=== PATIENT | male | born 1945 | race Caucasian/White ===

== ENCOUNTER 2016-08-27 15:27 | Outpatient (CLI) | payer MEDICARE | END 2016-08-27 15:28 | disposition home or self-care (01) | DX: T82.190A Other mechanical complication of cardiac electrode, initial encounter (principal); R91.8 Other nonspecific abnormal finding of lung field ==

== ENCOUNTER 2016-10-29 07:01 | Outpatient (CLI) | payer MEDICARE | END 2016-10-29 07:02 | disposition home or self-care (01) | DX: I71.4 Abdominal aortic aneurysm, without rupture (principal) ==

== ENCOUNTER 2016-11-22 08:39 | Outpatient (CLI) | payer MEDICARE | END 2016-11-22 08:40 | disposition home or self-care (01) | DX: M85.80 Other specified disorders of bone density and structure, unspecified site (principal); M89.9 Disorder of bone, unspecified; C90.00 Multiple myeloma not having achieved remission ==

== ENCOUNTER 2017-02-07 14:34 | Outpatient (CLI) | payer MEDICARE ==
--- NOTE | 2017-02-07 15:50 | XRAY Report ---
THREE VIEW BILATERAL KNEES: 02/07/2017 CLINICAL INDICATION: Pain. COMPARISON: 08/02/2009. FINDINGS: AP, lateral, and sunrise views of both knees were obtained. Mild osteoarthritic changes ar e again noted bilaterally. There is no evidence of acute fracture or dislocation. No effusion is pres ent on either side. Vascular calcifications are again seen. IMPRESSION: MILD OSTEOARTHRITIS. NO EVIDENCE OF FRACTURE. JOB #: [id number] EXT JOB #:[id number]
--- NOTE | 2017-02-07 16:03 | XRAY Report ---
LEFT HIP AND PELVIS: 02/07/2017 CLINICAL INDICATION: Pain. FINDINGS: Frontal view of the hips and pelvis and frogleg lateral view of the left hip are compared to previous pelvis film of 04/11/2014. Moderate osteoarthritis is again present. There is no evidence of fracture or dislocation. Vascular calcifications are present. IMPRESSION: MODERATE OSTEOARTHRITIS. JOB #: [id number] EXT JOB #:[id number]
== END 2017-02-07 14:35 | disposition home or self-care (01) ==
LOC: DI 14:34
PROVIDERS: ATTEND Internal Medicine
DX: M16.12 Unilateral primary osteoarthritis, left hip (principal); M17.0 Bilateral primary osteoarthritis of knee

== ENCOUNTER 2017-02-21 15:13 | Outpatient (CLI) | payer MEDICARE ==
--- NOTE | 2017-02-23 08:19 | Ultrasound Report ---
EXAM: RENAL ULTRASOUND EXAM DATE: 02/21/2017 03:21 PM. CLINICAL HISTORY: Chronic kidney disease, stage II. COMPARISON: 02/03/2016 and 11/01/2009. TECHNIQUE: Real-time scanning was performed with static images obtained. FINDINGS: Right Kidney: 12.3 x 6.3 x 6.1 cm. Mild pelviectasis. No mass, stones or hydronephrosis. No connie hyd ronephrosis. Renal cortex is mildly echogenic. Left Kidney: 11.0 x 5.2 x 4.6 cm. Renal cortex is mildly echogenic. No renal mass, stones or hydronep hrosis. Bladder: Bilateral jets seen. The prevoid bladder volume was 346.7 cc. The postvoid bladder volume wa s 215.7 cc. IMPRESSION: 1. Bilateral renal cortical increased echogenicity in keeping with chronic renal insufficiency. Mild right pelviectasis. 2. No renal mass, stones or hydronephrosis. 3. Normal bladder. Significant postvoid residual of 215.7 cc. [facility] Referring Provider Line: [phone] SITE ID: [id number]
== END 2017-02-21 15:14 | disposition home or self-care (01) ==
LOC: DI 15:13
PROVIDERS: ATTEND Internal Medicine Nephrology
DX: N18.2 Chronic kidney disease, stage 2 (mild) (principal)
CPT/HCPCS: 76770

== ENCOUNTER 2017-03-26 08:44 | Outpatient (CLI) | payer MEDICARE ==
--- NOTE | 2017-03-26 13:22 | Ultrasound Report ---
LIMITED RETROPERITONEAL ULTRASOUND: 03/26/2017 CLINICAL INDICATION: Followup aneurysm. COMPARISON: 10/29/2016. TECHNIQUE: Real-time sonographic vascular imaging was performed by the patient centered care specialist through the aorta. Multiple loan servicing representative static images were saved for review. FINDINGS: The abdominal aorta measures 2.8 cm proximally, and 2.4 cm in the mid portion. Mild distal aneurysmal dilatation is again seen, measuring 3.1 x 3.0 cm, stable. The iliacs are normal in caliber. No free fluid is present. IMPRESSION: STABLE SMALL DISTAL ABDOMINAL AORTIC ANEURYSM. JOB #: [id number] EXT JOB #: [id number] [facility]y
== END 2017-03-26 08:45 | disposition home or self-care (01) ==
LOC: DI 08:44
PROVIDERS: ATTEND Internal Medicine
DX: I71.4 Abdominal aortic aneurysm, without rupture (principal)
CPT/HCPCS: 76775

== ENCOUNTER 2017-06-11 09:06 | Outpatient (CLI) | payer MEDICARE ==
--- NOTE | 2017-06-11 11:19 | XRAY Report ---
TWO-VIEW CHEST: 06/11/2017 CLINICAL INDICATION: Atrial fibrillation. COMPARISON: 08/27/2016 FINDINGS: Frontal and lateral views of the chest demonstrate an enlarged cardiac silhouette. Left s ubclavian pacemaker is stable. The lungs are hyperinflated, compatible with COPD. No focal consolid ation, effusion, or pneumothorax is present. Old, healed rib fractures are noted. IMPRESSION: COPD, BUT NO EVIDENCE OF ACUTE CARDIOPULMONARY DISEASE. CARDIOMEGALY AND PACEMAKER, STA BLE. JOB #: [id number] EXT JOB #:[id number]
== END 2017-06-11 09:07 | disposition home or self-care (01) ==
LOC: DI 09:06
PROVIDERS: ATTEND Internal Medicine
DX: I48.2 Chronic atrial fibrillation (principal); I51.7 Cardiomegaly; Z95.0 Presence of cardiac pacemaker
CPT/HCPCS: 71020

== ENCOUNTER 2017-06-18 09:10 | Outpatient (CLI) | payer MEDICARE | END 2017-06-18 09:11 | disposition home or self-care (01) | LOC: RT 09:10 | PROVIDERS: ATTEND Internal Medicine | DX: R06.00 Dyspnea, unspecified (principal); J44.9 Chronic obstructive pulmonary disease, unspecified | CPT/HCPCS: 94010 ==

== ENCOUNTER 2017-10-11 08:00 | Outpatient (CLI) | payer MEDICARE ==
--- NOTE | 2017-10-13 08:51 | Ultrasound Report ---
EXAM: AORTIC DOPPLER ULTRASOUND EXAM DATE: 10/11/2017 08:35 AM. CLINICAL HISTORY: Hypertension. Aneurysm. COMPARISON: 03/26/2017. TECHNIQUE: Real-time sonographic imaging of retroperitoneal vascular structures, including color-flow , Doppler flow and spectral analysis was performed by the patient experience coordinator. Multiple software sales representative static images were saved for review. FINDINGS: Aorta: Somewhat limited visualization secondary to overlying bowel gas, especially proximal to mid le vels. Probable mild diffuse atherosclerotic plaque. No significant change in the fusiform distal aortic aneurysm with maximum diameter of 3 cm. Aorta: Proximal: Sagittal AP: 2.8 cm. Mid: Transverse: 2.4 X 2.5 cm. Distal: Transverse: 3.0 X 2.9 cm. Plaque visualized: Yes. Iliacs: Right Iliac: Transverse: 1.4 X 1.5 cm. Left Iliac: Transverse: 1.3 X 1.4 cm. Iliac Vessels: The visualized proximal common iliac arteries are normal in caliber. Other: None. IMPRESSION: No significant change in the 3 cm distal aortic aneurysm. [facility] Referring Provider Line: [phone] SITE ID: [id number]
== END 2017-10-11 08:01 | disposition home or self-care (01) ==
LOC: DI 08:00
PROVIDERS: ATTEND Internal Medicine
DX: I71.4 Abdominal aortic aneurysm, without rupture (principal)
CPT/HCPCS: 76775

== ENCOUNTER 2018-01-09 13:45 | Outpatient (CLI) | payer MEDICARE ==
--- NOTE | 2018-01-09 15:36 | XRAY Report ---
CHEST TWO VIEWS: 01/09/2018 HISTORY: Cough. COMPARISON: 06/11/2017. FINDINGS: Cardiac enlargement. Dual-lead left subclavian transvenous pacemaker unchanged. Multiple old bilateral rib fractures. The lungs are clear. No pleural effusion or pneumothorax. No significant new finding compared with 06/11/2017. IMPRESSION: MILD CARDIOMEGALY WITH CLEAR LUNGS. NO ACUTE FINDINGS COMPARED WITH 06/11/2017. TD: 01/09/2018 14:55 [facility]
== END 2018-01-09 13:46 | disposition home or self-care (01) ==
LOC: DI.N 13:45
PROVIDERS: ATTEND Internal Medicine
DX: R05 Cough (principal); I51.7 Cardiomegaly
CPT/HCPCS: 71046

== ENCOUNTER 2018-02-06 14:51 | Outpatient (CLI) | payer MEDICARE ==
--- NOTE | 2018-02-06 15:52 | Ultrasound Report ---
Procedure Date: 02/06/2018 Accession Number: [id number] / [id number] Procedure: US - Duplex Ext Veins Right CPT Code: FULL RESULT: EXAM: Duplex Ext Veins Right DATE: 02/06/2018 3:50 PM CLINICAL HISTORY: EDEMA COMPARISON: 08/09/2009 TECHNIQUE: Real-time sonographic vascular imaging was performed by the clerical receptionist through the lower extremity utilizing both color-flow and Doppler spectral analysis. Multiple electroplating sales representative static images were saved for review. FINDINGS: Common Femoral Vein (CFV): Normal. Superficial Femoral Vein (SFV) Prox: Normal. Superficial Femoral Vein (SFV) Mid: Normal. Superficial Femoral Vein (SFV) Dist: Normal. Popliteal Vein: Normal. Posterior Tibial Veins: Normal. Peroneal Veins: Normal. Other: None. IMPRESSION: Normal. No evidence for deep venous thrombosis. [facility]
== END 2018-02-06 14:52 | disposition home or self-care (01) ==
LOC: DI 14:51
PROVIDERS: ATTEND Internal Medicine
DX: R60.9 Edema, unspecified (principal)

== ENCOUNTER 2018-09-19 10:03 | Outpatient (CLI) | payer MEDICARE ==
--- NOTE | 2018-09-21 13:34 | Ultrasound Report ---
Reason: ABDOMINAL AORTIC ANEURYSM, WITHOUT RUPTURE Procedure Date: 09/19/2018 Accession Number: [id number] / [id number] Procedure: US - Retroperitoneal Limited CPT Code: FULL RESULT: EXAM: AORTIC DOPPLER ULTRASOUND EXAM DATE: 09/19/2018 10:43 AM. CLINICAL HISTORY: Abdominal aortic aneurysm without rupture. COMPARISON: RETROPERITONEAL LIMITED 10/11/2017 8:19 AM. TECHNIQUE: Real-time sonographic imaging of retroperitoneal vascular structures, including color-flow, Doppler flow and spectral analysis was performed by the mini baccarat dealer. Multiple premium representative static images were saved for review. FINDINGS: Aorta: The abdominal aorta was adequately visualized. The previously seen infrarenal aortic aneurysm measuring up to 3 cm is stable. Aorta: Proximal: Sagittal AP: 2.6 cm. Mid: Transverse: 2.3 x 2.3 cm. Distal: Transverse: 3.0 x 3.0 cm. Plaque visualized: Yes. Iliacs: Right Iliac: Transverse: 1.5 x 1.4 cm. Left Iliac: Transverse: 1.8 x 1.7 cm. Iliac Vessels: The visualized proximal common iliac arteries are within acceptable limits with differences in measurement felt to be due to angle/technique. Other: None. IMPRESSION: Stable exam with 3 cm infrarenal abdominal aortic ectasia. [facility]
== END 2018-09-19 10:04 | disposition home or self-care (01) ==
LOC: DI 10:03
PROVIDERS: ATTEND Internal Medicine
DX: I71.4 Abdominal aortic aneurysm, without rupture (principal)
CPT/HCPCS: 76775

== ENCOUNTER 2019-03-10 13:55 | Outpatient (CLI) | payer MEDICARE | END 2019-03-10 13:56 | disposition critical access hospital (66) | LOC: EMS 13:55 | PROVIDERS: ATTEND Surgery | DX: S09.90XA Unspecified injury of head, initial encounter (principal); S69.91XA Unspecified injury of right wrist, hand and finger(s), initial encounter; W10.1XXA Fall (on)(from) sidewalk curb, initial encounter; Y92.480 Sidewalk as the place of occurrence of the external cause; Z79.01 Long term (current) use of anticoagulants | CPT/HCPCS: A0425; A0429 ==

== ENCOUNTER 2019-03-10 14:13 | Emergency (ER) | payer MEDICARE ==
--- NOTE | 2019-03-10 14:26 | ED Physician Documentation ---
History of Present Illness - Stated complaint Stated Complaint: GLF - Chief complaint Chief Complaint: Trauma Hd/Nk - History obtained from History obtained from: Patient - History of Present Illness Timing: Prior to arrival - Additonal information Additional information: Patient is a 74-year-old male who accidentally tripped on a curb while going into the post office just prior to arrival. Patient struck his face and has superficial abrasions to his forehead and nose, but denies loss of consciousness. Patient also denies epistaxis, intraoral trauma, vision changes. Patient also denies neck pain, back pain, but does have generalized rib pain without other chest pain. No difficulty breathing. No vomiting, abdominal pain, extremity pain or other complaints except for superficial abrasions to both knees and laceration to right hand. Patient is right-handed. Patient is on Eliquis. Otherwise, patient has been at his normal state of health without complaint. No other improving or worsening factors noted. Review of Systems Eyes: denies: Loss of vision Nose: denies: Epistaxis Throat: denies: Dental pain / toothache Cardiac: denies: Chest pain / pressure Respiratory: denies: Dyspnea GI: denies: Abdominal Pain, Nausea, Vomiting, Diarrhea : denies: Dysuria Skin: reports: Abrasion (s), Laceration (s) Musculoskeletal: denies: Neck pain, Back pain, Extremity pain Neurologic: reports: Head injury. denies: Headache, LOC PD PAST MEDICAL HISTORY - Past Medical History Cardiovascular: Atrial fibrillation Respiratory: COPD Endocrine/Autoimmune: None GI: None : Benign prostate hypertrophy Musculoskeletal: None Derm: None - Past Surgical History Cardiovascular: Pacemaker - Present Medications Home Medications: Ambulatory Orders Medication Instructions Recorded Confirmed Lisinopril 10 mg PO BID 12/02/12 02/15/19 Sertraline [Zoloft] 150 mg ORAL DAILY 12/02/12 02/15/19 Simvastatin 20 mg ORAL DAILY 12/02/12 02/15/19 Vitamin B-12 500 mcg ORAL DAILY 12/02/12 02/15/19 Vitamin D 400 units ORAL BID 12/02/12 02/15/19 Multivitamin [Multivitamins] 1 each PO DAILY 06/07/13 02/15/19 Sotalol [Betapace] 80 mg ORAL BID 05/16/14 02/15/19 Albuterol Sulfate [Proair Hfa] 1 spray INH DAILY PRN 04/15/16 02/15/19 Ipratropium [employer] [Atrovent] 1 spray RANJAN DAILY 04/15/16 02/15/19 Montelukast [Singulair] 10 mg PO QPM 06/03/16 02/15/19 Apixaban [Eliquis] 5 mg PO DAILY 11/23/18 02/15/19 Carbidopa/Levodopa 25/100 [Sinemet 1 tab PO BID 11/23/18 02/15/19 25 mg/100 mg] Chlorthalidone 25 tab PO DAILY 11/23/18 02/15/19 Ipratropium [employer] [Atrovent Hfa] 1 puffs PO BID 11/23/18 02/15/19 Cephalexin [Keflex] 500 mg PO Q6H #28 capsule 03/10/19 Hydrocodone/Acetaminophen [Clute 1 each PO Q6HR PRN #15 tablet 03/10/19 5-325 Tablet] - Allergies Allergies/Adverse Reactions: Allergies Allergy/AdvReac Type Severity Reaction Status Date / Time azithromycin Allergy Mild Hives Verified 03/10/19 14:19 PD ED PE NORMAL - Vitals Vital signs reviewed: Yes - General General: Alert and oriented X 3, No acute distress, Well developed/nourished - HEENT HEENT: PERRL (No nystagmus. Gross visual acuity intact.), EOMI, Moist mucous membranes, Pharynx benign, Dentition benign. No: Atraumatic (Superficial abrasion to nasal bridge and midline forehead otherwise uncomplicated) - Neck Neck: No bony TTP - Cardiac Cardiac: RRR, No murmur - Respiratory Respiratory: No respiratory distress, Clear bilaterally - Abdomen Abdomen: Soft, Non tender, Non distended - Derm Derm: Normal color, Warm and dry, Other (Superficial abrasions to both knees otherwise uncomplicated. Large laceration to palm of right hand directly below pinky finger with exposure of subcutaneous tissue.) - Extremities Extremities: No deformity, No tenderness to palpate - Neuro Neuro: Alert and oriented X 3, No motor deficit, No sensory deficit - Psych Psych: Normal mood, Normal affect Results - Vitals Vitals: Vital Signs - 24 hr 03/10/19 03/10/19 14:17 15:41 Temperature 36.8 C Heart Rate 61 64 Respiratory 20 19 Rate Blood Pressure 138/80 H 136/82 H O2 Saturation 97 96 Oxygen O2 Source Room air Procedures - Laceration (location) Hand Length in cm: 2 Wound type: Curved, Irregular Neurovascular status: Sensory intact, Motor intact, Vascular intact Anesthesia: LET Wound Preparation: Irrigated copiously NS Skin layer closure: Nylon, Size #-0 - enter number (#4-0 four) Other: Patient tolerated well, No complications, Neurovascular intact, Dressing applied, Tetanus booster given Complexity: Simple - Splint (location) Upper extremity right Splint applied by: Tech Type of splint: Fiberglass, Ulnar gutter Other: Patient tolerated well, No complications, Neurovascular intact, Sling provided PD MEDICAL DECISION MAKING - ED course Complexity details: reviewed results, re-evaluated patient, considered differential, d/w patient, d/w family, d/w engineering consultant ED course: Patient presenting after mechanical fall just prior to arrival. Patient has multiple superficial abrasions to face, as well as both knees and a laceration to right hand. CT imaging of head and neck obtained which not find evidence of acute injury. Plain films of right hand indicated displaced fracture through the base of the proximal phalanx of the fifth digit. Laceration is overlying this area and giving consideration of possible open fracture, patient received both tetanus and Ancef. Also spoke with orthopedic surgery who recommends outpatient follow-up. Patient's wound appropriately anesthetized, cleaned, repaired in the ED. Ulnar gutter splint placed as well. Discussed possible close injury precautions for such, superficial abrasion wound care, splint and right hand fracture and wound care, return precautions, and orthopedic surgery, as well as primary care follow-up. Patient and family voiced understanding and are comfortable with discharge plan. Departure - Departure Disposition: 01 Home, Self Care Clinical Impression: Laceration Closed head injury Qualifiers: Encounter type: initial encounter Qualified Code(s): S09.90XA - Unspecified injury of head, initial encounter Finger fracture, right Qualifiers: Encounter type: initial encounter Finger: little finger Fracture type: open Phalanx: proximal Fracture alignment: displaced Qualified Code(s): S62.616B - Displaced fracture of proximal phalanx of right little finger, initial encounter for open fracture Condition: Good Instructions: ED Head Injury Closed, ED Laceration All, ED Fx Finger Open Follow-Up: Otilio Agosto MD [Provider Admit Priv/Credential] - Within 3 Days Prescriptions: Hydrocodone/Acetaminophen [Clute 5-325 Tablet] 1 each PO Q6HR PRN #15 tablet PRN Reason: Pain Cephalexin [Keflex] 500 mg PO Q6H #28 capsule Comments: Please continue home medications as previously instructed. Please take antibiotics to avoid infection in the right hand. May use Clute as prescribed for pain control but do not combine with alcohol, driving, or Tylenol. If using Clute regularly, recommend use of stool softener or laxative to avoid constipation. If not taking Clute regularly, may use ibuprofen/Tylenol. Please keep splint in place, clean, dry. May also elevate and ice and to reduce swel ling and discomfort. Please keep all other superficial abrasions clean and dry using running water and soap only. Please be aware of possible closed head injury/concussion and avoid activities that could result in fall or striking of head. Please follow-up with primary care physician in next 2 to 3 days for reevaluation and approval to return to full activity. Please contact orthopedic surgery tomorrow to schedule outpatient follow-up in the next several days regarding your right hand injury and fracture. Return to ED sooner if experience worsening symptoms or have other concerns.
[2019-03-10] MEDS ORDERED: TETANUS/DIPHTHERIA/PERTUSSIS 0.5 ML SYRINGE IM ONE (14:32)
[2019-03-10] MEDS ORDERED: LIDOCAINE-EPINEPH-TETRACAINE 3 ML SYRINGE TOP STA (14:43)
--- NOTE | 2019-03-10 15:11 | CT Report ---
Reason: fall off curb onto face, on Eliquis Procedure Date: 03/10/2019 Accession Number: [id number] / [id number] Procedure: CT - HEAD WO CPT Code: FULL RESULT: EXAM: CT HEAD WITHOUT IV CONTRAST EXAM DATE: 03/10/2019 02:53 PM. CLINICAL HISTORY: 74-year-old on Eliquis with fall off of curb onto face. Evaluate for intracranial pathology. COMPARISON: CT cervical spine 03/10/2019. TECHNIQUE: Multiaxial CT images were obtained from the foramen magnum to the vertex. Reformats: Sagittal and coronal. IV contrast: None. In accordance with CT protocol optimization, one or more of the following dose reduction techniques were utilized for this exam: automated exposure control, adjustment of mA and/or KV based on patient size, or use of iterative reconstructive technique. FINDINGS: Parenchyma: No acute parenchymal hemorrhage, mass, or midline shift. There are mild bilateral areas of white matter hypoattenuation seen that are age-indeterminant but appear chronic. There is no convincing CT evidence of acute infarct. There is mild to moderate cortical volume loss. Extraaxial Spaces: Sulci and cisterns are prominent but appropriate for the extent of volume loss. No subdural or epidural collections identified. Ventricles: Normal in size and position. Sinuses and Orbits: Changes of bilateral lens replacement. There is moderate mucosal thickening of the visualized left maxillary sinus. Mastoid air cells and middle ear cavities appear clear. Bones: No evidence of fracture or calvarial defect. Other: Vascular calcifications of the cavernous and supraclinoid ICA segments. IMPRESSION: 1. No definite acute intracranial pathology seen; specifically, no acute infarct, acute intracranial hemorrhage, mass, hydrocephalus, or midline shift. 2. No definite calvarial fracture. 3. Mild white matter changes seen that appear chronic suggesting potential sequela of chronic small-vessel ischemic disease. [facility]
--- NOTE | 2019-03-10 15:18 | CT Report ---
Reason: fall off of curb, struck face, on Eliquis Procedure Date: 03/10/2019 Accession Number: [id number] / [id number] Procedure: CT - CERVICAL SPINE WO CPT Code: FULL RESULT: EXAM: CT CERVICAL SPINE WITHOUT CONTRAST DATE: 03/10/2019 02:53 PM. HISTORY: 74-year-old on [email or web address] with fall off of curb resulting in facial strike. Evaluate for cervical pathology. COMPARISONS: None. TECHNIQUE: Thin-section axial images were acquired of the cervical spine without contrast. Post-processing: Coronal and sagittal reformats. Other: None. In accordance with CT protocol optimization, one or more of the following dose reduction techniques were utilized for this exam: automated exposure control, adjustment of mA and/or KV based on patient size, or use of iterative reconstructive technique. FINDINGS: Alignment: Mild leftward curvature of the cervical spine. Straightening of the normal cervical lordosis. Bones: No fracture or bone lesion. Interspace Levels/Facets: C1-C2: Arthritic changes seen between the dens and anterior arch of C1. There is 3-4 mm of clockwise rotary subluxation of C1 on C2. C2-C3: Small broad-based disk osteophyte complex. Bilateral arthritic facet disease. Mild spinal canal stenosis. Mild left neural foraminal narrowing. C3-C4: Small broad-based disk osteophyte complex. Bilateral uncovertebral osteophyte and arthritic facet disease, greater on the left. Mild spinal canal stenosis. Mild right and severe left neural foraminal narrowing. C4-C5: Small broad-based disk osteophyte complex. Left uncovertebral osteophyte and arthritic facet disease as well as right arthritic facet disease. Mild spinal canal stenosis. Severe left neural foraminal narrowing. C5-C6: Mild to moderate endplate degenerative change, Schmorl's node formation, moderate loss of disk height, and vacuum disk phenomenon. Small to moderate broad-based disk osteophyte complex. Bilateral uncovertebral osteophyte and arthritic facet disease. Mild spinal canal stenosis. Mild to moderate right and moderate left neural foraminal narrowing. C6-C7: Anterior spurring. Moderate endplate degenerative change, Schmorl's node formation, severe loss of disk height, and vacuum disk phenomenon. Small to moderate broad-based disk osteophyte complex. Bilateral uncovertebral osteophyte and arthritic facet disease. Mild to moderate spinal canal stenosis. Moderate to severe bilateral neural foraminal narrowing. C7-T1: Anterior spurring. Mild endplate degenerative change with moderate loss of disk height. Bilateral arthritic facet disease. No spinal canal stenosis. Mild bilateral neural foraminal narrowing. Musculature: Mild fatty atrophy of the posterior spinal musculature. Edema within the subcutaneous tissues of the posterior neck. Other: The paravertebral and prevertebral soft tissues are unremarkable. The lung apices are clear. Vascular calcifications of the carotid bifurcations. Hyperdense right thyroid nodule seen measuring up to 13 mm (series 3, image 91). Punctate calcification seen within the tonsillar crypts. IMPRESSION: 1. No acute fracture or traumatic subluxation seen. 2. Multilevel degenerative changes seen, as detailed above. [facility]
--- NOTE | 2019-03-10 15:20 | XRAY Report ---
Reason: fall off curb with generalized rib pain Procedure Date: 03/10/2019 Accession Number: [id number] / [id number] Procedure: XR - Chest 1 View X-Ray CPT Code: 62798 FULL RESULT: EXAM: CHEST RADIOGRAPHY EXAM DATE: 03/10/2019 02:49 PM. CLINICAL HISTORY: Fall COMPARISON: CHEST 2 VIEW 01/09/2018 2:00 PM. TECHNIQUE: 1 view. FINDINGS: Lungs/Pleura: Bibasilar atelectasis and scarring. Tiny calcific density in left upper hemithorax is pleural plaque versus calcified granuloma. No acute displaced rib fractures or pneumothorax. No focal opacities evident. No pleural effusion. No pneumothorax. Mediastinum: Dual-lead ICD device projects over the left chest wall with moderate stable cardiomegaly. Other: Old healed rib fractures at 5, 6 and 7 posterior right ribs. IMPRESSION: Dual-lead ICD device projects over left chest wall with moderate stable cardiomegaly. No acute cardiopulmonary process. No acute displaced rib fractures but no pneumothorax. [facility]
--- NOTE | 2019-03-10 15:23 | XRAY Report ---
Reason: fall off curb, lac to right palm below pinky Procedure Date: 03/10/2019 Accession Number: [id number] / [id number] Procedure: XR - Hand 3 View RT CPT Code: FULL RESULT: EXAM: RIGHT HAND RADIOGRAPHY EXAM DATE: 03/10/2019 02:49 PM. CLINICAL HISTORY: Fall off curb, lac to right palm below pinky. COMPARISON: None. TECHNIQUE: 3 views. FINDINGS: Bones: An acute displaced transverse nonarticular fracture is seen through the base of the proximal phalanx of right fifth digit. Mild soft tissue swelling overlying the fracture site. Joints: No subluxations. IMPRESSION: An acute displaced transverse nonarticular fracture through the base of the proximal phalanx of right fifth digit. No malalignment. [facility]
[2019-03-10] MEDS ORDERED: ceFAZolin 1 GM in SODIUM CHLORIDE 0.9% MINIBAG 100 ML IV STA (15:25)
[2019-03-10 18:05] VITALS: BP 135/87
== END 2019-03-10 18:27 | disposition home or self-care (01) ==
LOC: EDUNIT# → ED 14:13
DX: S09.8XXA Other specified injuries of head, initial encounter (principal); S62.616B Displaced fracture of proximal phalanx of right little finger, initial encounter for open fracture; S00.31XA Abrasion of nose, initial encounter; S00.81XA Abrasion of other part of head, initial encounter; S80.212A Abrasion, left knee, initial encounter; S80.211A Abrasion, right knee, initial encounter; W10.1XXA Fall (on)(from) sidewalk curb, initial encounter; Y92.242 Post office as the place of occurrence of the external cause; Z79.01 Long term (current) use of anticoagulants
CPT/HCPCS: 12001; 70450; 71045; 72125; 90471; 96365

== ENCOUNTER 2019-04-28 10:55 | Outpatient (CLI) | payer MEDICARE ==
[2019-04-28 12:56] LABS: ALBUMIN 3.7 g/dL (3.2-5.5); ALBUMIN/GLOBULIN RATIO 1.1 (1.0-2.2); ALKALINE PHOSPHATASE 34 IU/L (42-121); ALT ALANINE AMINOTRANSFERASE < 10 IU/L (10-60); AST ASPARTATE AMINOTRANSFERASE 19 IU/L (10-42); BILIRUBIN,TOTAL 0.4 mg/dL (0.2-1.0); BUN - BLOOD UREA NITROGEN 19 mg/dL (6-20); CALCIUM 9.1 mg/dL (8.5-10.3); CARBON DIOXIDE - CO2 27 mmol/L (21-32); CHLORIDE 104 mmol/L (101-111); CREATININE 1.1 mg/dL (0.6-1.2); GFR - MDRD 65 (>89); GLUCOSE 111 mg/dL (70-100); SODIUM 137 mmol/L (135-145); TOTAL PROTEIN 7.2 g/dL (6.7-8.2)
== END 2019-04-28 23:59 | disposition home or self-care (01) ==
LOC: LAB.N 10:55
PROVIDERS: ATTEND Internal Medicine Cardiovascular Disease
DX: I48.1 Persistent atrial fibrillation (principal)
CPT/HCPCS: 36415; 80053

== ENCOUNTER 2019-09-16 08:00 | Outpatient (CLI) | payer MEDICARE | END 2019-09-16 23:59 | disposition home or self-care (01) | LOC: LAB.N 08:00 | PROVIDERS: ATTEND Internal Medicine | DX: I48.91 Unspecified atrial fibrillation (principal) | CPT/HCPCS: 85610 ==

== ENCOUNTER 2019-09-23 13:31 | Outpatient (CLI) | payer MEDICARE | END 2019-09-23 23:59 | disposition home or self-care (01) | LOC: LAB.N 13:31 | PROVIDERS: ATTEND Internal Medicine | DX: I48.19 Other persistent atrial fibrillation (principal) | CPT/HCPCS: 85610 ==

== ENCOUNTER 2019-09-30 14:27 | Outpatient (CLI) | payer MEDICARE | END 2019-09-30 23:59 | disposition home or self-care (01) | LOC: LAB.N 14:27 | PROVIDERS: ATTEND Internal Medicine | DX: I48.19 Other persistent atrial fibrillation (principal) | CPT/HCPCS: 85610 ==

== ENCOUNTER 2019-10-07 13:46 | Outpatient (CLI) | payer MEDICARE | END 2019-10-07 23:59 | disposition home or self-care (01) | LOC: LAB.N 13:46 | PROVIDERS: ATTEND Internal Medicine | DX: I48.91 Unspecified atrial fibrillation (principal) | CPT/HCPCS: 85610 ==

== ENCOUNTER 2019-10-13 14:06 | Outpatient (CLI) | payer MEDICARE | END 2019-10-13 23:59 | disposition home or self-care (01) | LOC: LAB.N 14:06 | PROVIDERS: ATTEND Internal Medicine | DX: I48.19 Other persistent atrial fibrillation (principal) | CPT/HCPCS: 85610 ==

== ENCOUNTER 2019-11-04 09:51 | Outpatient (CLI) | payer MEDICARE ==
--- NOTE | 2019-11-04 11:12 | Ultrasound Report ---
Reason: ABDOMINAL AORTIC ANEURYSM Procedure Date: 11/04/2019 Accession Number: [id number] / [id number] Procedure: US - Retroperitoneal Limited CPT Code: Final Report FULL RESULT: EXAM: AORTIC DOPPLER ULTRASOUND EXAM DATE: 11/04/2019 10:24 AM. CLINICAL HISTORY: Abdominal aortic aneurysm. COMPARISON: RETROPERITONEAL LIMITED 02/03/2016 9:07 AM. ABDOMEN 06/29/2012 8:18 AM. TECHNIQUE: Real-time sonographic imaging of retroperitoneal vascular structures, including color-flow, Doppler flow and spectral analysis was performed by the sales recruiter. Multiple publications sales representative static images were saved for review. FINDINGS: Aorta: The abdominal aorta was adequately visualized. Aorta: Proximal: Sagittal AP 2.6 cm. Mid: Transverse 2.6 x 2.7 cm. Distal: Transverse 3.0 x 3.1 cm. Plaque visualized: Yes. Iliacs: Right Iliac: Transverse 1.5 x 1.5 cm. Left Iliac: Transverse 1.9 x 1.7 cm. Iliac Vessels: The visualized proximal common iliac arteries are normal in caliber. Other: None. IMPRESSION: 1. Distal abdominal aortic aneurysm measuring 3.1 cm. [facility]
== END 2019-11-04 09:52 | disposition home or self-care (01) ==
LOC: DI 09:51
PROVIDERS: ATTEND Internal Medicine
DX: I71.4 Abdominal aortic aneurysm, without rupture (principal)
CPT/HCPCS: 76775

== ENCOUNTER 2019-11-10 11:24 | Outpatient (CLI) | payer MEDICARE | END 2019-11-10 11:25 | disposition home or self-care (01) | LOC: LAB 11:24 | PROVIDERS: ATTEND Internal Medicine | DX: I48.19 Other persistent atrial fibrillation (principal) | CPT/HCPCS: 85610 ==

== ENCOUNTER 2019-12-08 12:00 | Outpatient (CLI) | payer MEDICARE | END 2019-12-08 12:01 | disposition home or self-care (01) | LOC: LAB 12:00 | PROVIDERS: ATTEND Internal Medicine | DX: I48.19 Other persistent atrial fibrillation (principal) | CPT/HCPCS: 85610 ==

== ENCOUNTER 2019-12-21 12:38 | Outpatient (CLI) | payer MEDICARE | END 2019-12-21 12:39 | disposition home or self-care (01) | LOC: LAB 12:38 | PROVIDERS: ATTEND Internal Medicine | DX: I48.19 Other persistent atrial fibrillation (principal) | CPT/HCPCS: 85610 ==

== ENCOUNTER 2020-01-06 12:37 | Outpatient (CLI) | payer MEDICARE | END 2020-01-06 12:38 | disposition home or self-care (01) | LOC: LAB 12:37 | PROVIDERS: ATTEND Internal Medicine | DX: I48.19 Other persistent atrial fibrillation (principal) | CPT/HCPCS: 85610 ==

== ENCOUNTER 2020-01-20 12:55 | Outpatient (CLI) | payer MEDICARE | END 2020-01-20 12:56 | disposition home or self-care (01) | LOC: LAB 12:55 | PROVIDERS: ATTEND Internal Medicine | DX: I48.91 Unspecified atrial fibrillation (principal) | CPT/HCPCS: 85610 ==

== ENCOUNTER 2020-02-17 13:10 | Outpatient (CLI) | payer MEDICARE | END 2020-02-17 13:11 | disposition home or self-care (01) | LOC: LAB 13:10 | PROVIDERS: ATTEND Internal Medicine | DX: I48.19 Other persistent atrial fibrillation (principal) | CPT/HCPCS: 85610 ==

== ENCOUNTER 2020-03-17 08:00 | Outpatient (CLI) | payer MEDICARE ==
[2020-03-17 18:14] LABS: BASOPHILS % (AUTO) 0.2 %; EOSINOPHILS # (AUTO) 0.1 10^3/uL (0.0-0.7); EOSINOPHILS % (AUTO) 1.5 %; HGB - HEMOGLOBIN 12.5 g/dL (14.0-18.0); LYMPHOCYTES # (AUTO) 0.9 10^3/uL (1.5-3.5); LYMPHOCYTES % (AUTO) 17.4 %; MEAN CORPUSCULAR HEMOGLOBIN 30.3 pg (27.0-31.0); MEAN CORPUSCULAR HGB CONC 30.4 g/dL (32.0-36.0); MEAN CORPUSCULAR VOLUME 99.8 fL (80.0-94.0); MEAN PLATELET VOLUME 10.1 fL (7.4-11.4); MONOCYTES # (AUTO) 0.6 10^3/uL (0.0-1.0); MONOCYTES % (AUTO) 10.5 %; NEUTROPHILS # (AUTO) 3.7 10^3/uL (1.5-6.6); PLT - PLATELET COUNT 180 10^3/uL (130-450); RED BLOOD COUNT 4.12 10^6/uL (4.70-6.10); RED CELL DISTRIBUTION WIDTH 13.3 % (12.0-15.0); WHITE BLOOD COUNT 5.2 x10^3/uL (4.8-10.8)
[2020-03-17 18:17] LABS: INR 2.4 (0.8-1.2); PT - PROTHROMBIN TIME 25.5 secs (9.9-12.6)
[2020-03-17 18:30] LABS: ALBUMIN 4.2 g/dL (3.2-5.5); ALBUMIN/GLOBULIN RATIO 1.2 (1.0-2.2); ALKALINE PHOSPHATASE 41 IU/L (42-121); ALT ALANINE AMINOTRANSFERASE 16 IU/L (10-60); AST ASPARTATE AMINOTRANSFERASE 18 IU/L (10-42); BILIRUBIN,TOTAL 0.5 mg/dL (0.2-1.0); BUN - BLOOD UREA NITROGEN 22 mg/dL (6-20); CALCIUM 9.2 mg/dL (8.5-10.3); CARBON DIOXIDE - CO2 28 mmol/L (21-32); CHLORIDE 104 mmol/L (101-111); CHOL/HDL RATIO 4.1 (<5.0); CHOLESTEROL 164 mg/dL; CREATININE 1.3 mg/dL (0.6-1.2); GLUCOSE 97 mg/dL (70-100); HDL CHOLESTEROL 40 mg/dL; LDL CHOLESTEROL,CALCULATED 84 mg/dL; LDL/HDL RATIO 2.1 (<3.6); SODIUM 138 mmol/L (135-145); TOTAL PROTEIN 7.7 g/dL (6.7-8.2); VLDL CHOLESTEROL 40 mg/dL
== END 2020-03-17 23:59 | disposition home or self-care (01) ==
LOC: LAB.WCP 08:00
PROVIDERS: ATTEND Internal Medicine
DX: I12.9 Hypertensive chronic kidney disease with stage 1 through stage 4 chronic kidney disease, or unspecified chronic kidney disease (principal); N18.2 Chronic kidney disease, stage 2 (mild); K58.0 Irritable bowel syndrome with diarrhea; D64.9 Anemia, unspecified; E78.5 Hyperlipidemia, unspecified; I71.4 Abdominal aortic aneurysm, without rupture; Z79.899 Other long term (current) drug therapy
CPT/HCPCS: 36415; 80053; 80061; 83721; 84153; 84443; 85025; 85610

== ENCOUNTER 2020-04-13 13:31 | Outpatient (CLI) | payer MEDICARE | END 2020-04-13 13:32 | disposition home or self-care (01) | LOC: LAB 13:31 | PROVIDERS: ATTEND Internal Medicine | DX: I48.19 Other persistent atrial fibrillation (principal) | CPT/HCPCS: 85610 ==

== ENCOUNTER 2020-05-11 12:35 | Outpatient (CLI) | payer MEDICARE | END 2020-05-11 12:36 | disposition home or self-care (01) | LOC: LAB 12:35 | PROVIDERS: ATTEND Internal Medicine | DX: I48.19 Other persistent atrial fibrillation (principal) | CPT/HCPCS: 85610 ==

== ENCOUNTER 2020-06-15 13:01 | Outpatient (CLI) | payer MEDICARE | END 2020-06-15 13:02 | disposition home or self-care (01) | LOC: LAB 13:01 | PROVIDERS: ATTEND Internal Medicine | DX: I48.91 Unspecified atrial fibrillation (principal) | CPT/HCPCS: 85610 ==

== ENCOUNTER 2020-07-20 14:33 | Outpatient (CLI) | payer MEDICARE | END 2020-07-20 14:34 | disposition home or self-care (01) | LOC: LAB 14:33 | PROVIDERS: ATTEND Internal Medicine | DX: I48.19 Other persistent atrial fibrillation (principal) | CPT/HCPCS: 85610 ==

== ENCOUNTER 2020-08-24 09:33 | Outpatient (CLI) | payer MEDICARE ==
--- NOTE | 2020-08-24 13:44 | Ultrasound Report ---
PROCEDURE: Retroperitoneal Limited INDICATIONS: AAA TECHNIQUE: Real time scanning was performed of the aorta and iliac arteries, with image documentatio n. COMPARISON: 11/04/2019 FINDINGS: Aorta: Proximal aortic diameter measures 2.4 x 2.3 cm. Mid-aorta measures 1.7 x 1.9 cm. Distal aor tic diameter is 3.3 x 3.4 cm. Distal abdominal aorta previously measured 3.0 x 3.1 cm. Atheroscleroti c plaques noted in the distal abdominal aorta and proximal iliac arteries. Iliac arteries: Right common iliac artery measures 1.0 x 0.9 cm. Left common iliac artery measures 1.2 x 1.0 cm. IMPRESSION: Distal infrarenal abdominal aortic aneurysm demonstrating mild interval increase in size now measurin g 3.3 x 3.4 cm, previously 3.0 x 3.1. Recommend continued clinical and imaging surveillance. Follow-u p ultrasound in 3 years is recommended. Atherosclerotic vascular disease. Reviewed by: Lex Luna MD on 08/24/2020 1:42 PM PST Approved by: Lex Luna MD on 08/24/2020 1:42 PM PST Station ID: [id number]
== END 2020-08-24 09:34 | disposition home or self-care (01) ==
LOC: DI 09:33
PROVIDERS: ATTEND Internal Medicine
DX: I71.4 Abdominal aortic aneurysm, without rupture (principal)

== ENCOUNTER 2020-08-31 13:07 | Outpatient (CLI) | payer MEDICARE | END 2020-08-31 13:08 | disposition home or self-care (01) | LOC: LAB 13:07 | PROVIDERS: ATTEND Internal Medicine | DX: I48.19 Other persistent atrial fibrillation (principal) | CPT/HCPCS: 85610 ==

== ENCOUNTER 2020-10-05 15:36 | Outpatient (CLI) | payer MEDICARE | END 2020-10-05 15:37 | disposition home or self-care (01) | LOC: LAB 15:36 | PROVIDERS: ATTEND Internal Medicine | DX: I48.19 Other persistent atrial fibrillation (principal) | CPT/HCPCS: 85610 ==

== ENCOUNTER 2020-10-12 13:47 | Outpatient (CLI) | payer MEDICARE | END 2020-10-12 13:48 | disposition home or self-care (01) | LOC: LAB 13:47 | PROVIDERS: ATTEND Internal Medicine | DX: I48.19 Other persistent atrial fibrillation (principal) | CPT/HCPCS: 85610 ==

== ENCOUNTER 2020-10-19 10:59 | Outpatient (CLI) | payer MEDICARE ==
[2020-10-19 11:19] LABS: BILIRUBIN,URINE NEGATIVE (NEGATIVE); GLUCOSE, URINE (UA) NEGATIVE (NEGATIVE); KETONES,URINE (UA) NEGATIVE (NEGATIVE); LEUKOCYTE ESTERASE, URINE NEGATIVE (NEGATIVE); NITRITE,URINE NEGATIVE (NEGATIVE); OCCULT BLOOD,URINE NEGATIVE (NEGATIVE); PROTEIN,URINE NEGATIVE (NEGATIVE); UROBILINOGEN,URINE 0.2 (NORMAL) E.U./dL (NORMAL)
[2020-10-19 11:21] LABS: CLARITY,URINE CLEAR (CLEAR)
[2020-10-19 11:55] LABS: ESTIMATED AVERAGE GLUCOSE 123 mg/dL (70-100); HEMOGLOBIN A1c% 5.9 % (4.27-6.07)
== END 2020-10-19 11:00 | disposition home or self-care (01) ==
LOC: LAB 10:59
PROVIDERS: ATTEND Internal Medicine
DX: E66.9 Obesity, unspecified (principal); I10 Essential (primary) hypertension; R73.01 Impaired fasting glucose; Z79.899 Other long term (current) drug therapy; E78.5 Hyperlipidemia, unspecified
CPT/HCPCS: 36415; 81001; 81003; 82947; 83036

== ENCOUNTER 2020-11-16 14:50 | Outpatient (CLI) | payer MEDICARE ==
--- NOTE | 2020-11-16 16:27 | Ultrasound Report ---
PROCEDURE: Carotid Doppler Complete INDICATIONS: AFIB, DIZZINESS TECHNIQUE: Color and pulse Doppler interrogation was performed of both carotid systems, with image documentation and velocity measurements. COMPARISON: None. FINDINGS: Right side: Brachial blood pressure: 131/71 mm Hg. Common carotid artery peak systolic velocity: 119 cm/sec. Internal carotid artery peak systolic velocity: 71 cm/sec. Internal carotid artery end diastolic velocity: 24 cm/sec. External carotid artery peak systolic velocity: 79 cm/sec. ICA/CCA peak systolic ratio: 0.6 . Carbajal scale imaging description: No plaque Percent internal carotid artery stenosis: None . Vertebral artery: Flow direction is antegrade. Left side: Brachial blood pressure: 125/63 mm Hg. Common carotid artery peak systolic velocity: 99 cm/sec. Internal carotid artery peak systolic velocity: 96 cm/sec. Internal carotid artery end diastolic velocity: 34 cm/sec. External carotid artery peak systolic velocity: 68 cm/sec. ICA/CCA peak systolic ratio: 0.97 . Carbajal scale imaging description: No plaque Percent internal carotid artery stenosis: None . Vertebral artery: Flow direction is antegrade. IMPRESSION: No ICA stenosis identified. The estimate of stenosis included in the report of the imaging study was calculated using the NASCET method Reviewed by: Gaston Ireland MD on 11/16/2020 4:26 PM PDT Approved by: Gaston Ireland MD on 11/16/2020 4:26 PM PDT Station ID: [id number]
== END 2020-11-16 14:51 | disposition home or self-care (01) ==
LOC: DI 14:50
PROVIDERS: ATTEND Internal Medicine Cardiovascular Disease
DX: I48.19 Other persistent atrial fibrillation (principal); R42 Dizziness and giddiness
CPT/HCPCS: 85610; 93880

== ENCOUNTER 2020-11-16 15:47 | Outpatient (CLI) | payer MEDICARE | END 2020-11-16 15:48 | disposition home or self-care (01) | LOC: LAB 15:47 | PROVIDERS: ATTEND Internal Medicine | DX: I48.19 Other persistent atrial fibrillation (principal) | CPT/HCPCS: 85610 ==

== ENCOUNTER 2020-11-24 13:09 | Outpatient (CLI) | payer MEDICARE | END 2020-11-24 13:10 | disposition home or self-care (01) | LOC: LAB 13:09 | PROVIDERS: ATTEND Internal Medicine | DX: I48.19 Other persistent atrial fibrillation (principal) | CPT/HCPCS: 85610 ==

== ENCOUNTER 2021-01-04 10:25 | Outpatient (CLI) | payer MEDICARE | END 2021-01-04 10:26 | disposition home or self-care (01) | LOC: LAB 10:25 | PROVIDERS: ATTEND Internal Medicine | DX: I48.19 Other persistent atrial fibrillation (principal) | CPT/HCPCS: 36416; 85610 ==

== ENCOUNTER 2021-02-07 12:07 | Outpatient (CLI) | payer MEDICARE | END 2021-02-07 12:08 | disposition home or self-care (01) | LOC: LAB 12:07 | PROVIDERS: ATTEND Internal Medicine | DX: I48.19 Other persistent atrial fibrillation (principal) | CPT/HCPCS: 36416; 85610 ==

== ENCOUNTER 2021-03-15 12:31 | Outpatient (CLI) | payer MEDICARE | END 2021-03-15 23:59 | disposition home or self-care (01) | LOC: LAB 12:31 | PROVIDERS: ATTEND Internal Medicine | DX: I48.19 Other persistent atrial fibrillation (principal) | CPT/HCPCS: 36416; 85610 ==

== ENCOUNTER 2021-04-25 13:28 | Outpatient (CLI) | payer MEDICARE | END 2021-04-25 13:29 | disposition home or self-care (01) | LOC: LAB 13:28 | PROVIDERS: ATTEND Internal Medicine | DX: I48.19 Other persistent atrial fibrillation (principal) | CPT/HCPCS: 36416; 85610 ==

== ENCOUNTER 2021-04-30 13:34 | Outpatient (CLI) | payer MEDICARE | END 2021-04-30 13:35 | disposition home or self-care (01) | LOC: LAB.N 13:34 | PROVIDERS: ATTEND Internal Medicine | DX: I48.19 Other persistent atrial fibrillation (principal) | CPT/HCPCS: 85610 ==

== ENCOUNTER 2021-06-06 14:40 | Outpatient (CLI) | payer MEDICARE | END 2021-06-06 14:41 | disposition home or self-care (01) | LOC: LAB.N 14:40 | PROVIDERS: ATTEND Internal Medicine | DX: I48.19 Other persistent atrial fibrillation (principal) | CPT/HCPCS: 36416; 85610 ==

== ENCOUNTER 2021-06-14 11:15 | Outpatient (CLI) | payer MEDICARE | END 2021-06-14 11:16 | disposition home or self-care (01) | LOC: LAB.N 11:15 | PROVIDERS: ATTEND Internal Medicine | DX: I48.19 Other persistent atrial fibrillation (principal) | CPT/HCPCS: 36416; 85610 ==

== ENCOUNTER 2021-06-21 12:15 | Outpatient (CLI) | payer MEDICARE | END 2021-06-21 12:16 | disposition home or self-care (01) | LOC: LAB.N 12:15 | PROVIDERS: ATTEND Internal Medicine | DX: I48.19 Other persistent atrial fibrillation (principal) | CPT/HCPCS: 36416; 85610 ==

== ENCOUNTER 2021-07-09 14:02 | Outpatient (CLI) | payer MEDICARE | END 2021-07-09 14:03 | disposition home or self-care (01) | LOC: LAB 14:02 | PROVIDERS: ATTEND Internal Medicine | DX: I48.19 Other persistent atrial fibrillation (principal) | CPT/HCPCS: 36416; 85610 ==

== ENCOUNTER 2021-07-24 09:06 | Outpatient (CLI) | payer MEDICARE ==
--- NOTE | 2021-07-24 17:10 | Ultrasound Report ---
PROCEDURE: Retroperitoneal Limited INDICATIONS: AAA TECHNIQUE: Real time scanning was performed of the aorta and iliac arteries, with image documentatio n. COMPARISON: 09/19/2018 11/04/2019, 08/24/2020 FINDINGS: Aorta: Proximal aortic diameter measures 2.6 x 2.7 cm. Mid-aorta measures 2.2 x 2.2 cm. Distal aor tic diameter is 3.0 x 3.3 cm. Iliac arteries: Right common iliac artery measures 0.7 x 1.8 cm. Left common iliac artery measures 0.7 x 1.7 cm. IMPRESSION: 3.0 x 3.3 cm is distal abdominal aortic aneurysm not significantly changed compared to 11/201908/24/19 21. Recommend follow-up ultrasound in 3 years. Reviewed by: Dominga Boyer MD, PhD on 07/24/2021 5:09 PM PST Approved by: Dominga Boyer MD, PhD on 07/24/2021 5:09 PM PST Station ID: [id number]
== END 2021-07-24 09:07 | disposition home or self-care (01) ==
LOC: DI 09:06
PROVIDERS: ATTEND Internal Medicine
DX: I71.4 Abdominal aortic aneurysm, without rupture (principal)

== ENCOUNTER 2021-08-01 14:23 | Outpatient (CLI) | payer MEDICARE | END 2021-08-01 14:24 | disposition home or self-care (01) | LOC: LAB.N 14:23 | PROVIDERS: ATTEND Internal Medicine | DX: I48.19 Other persistent atrial fibrillation (principal) | CPT/HCPCS: 36416; 85610 ==

== ENCOUNTER 2021-08-30 14:38 | Outpatient (CLI) | payer MEDICARE | END 2021-08-30 14:39 | disposition home or self-care (01) | LOC: LAB.N 14:38 | PROVIDERS: ATTEND Internal Medicine | DX: I48.19 Other persistent atrial fibrillation (principal) | CPT/HCPCS: 36416; 85610 ==

== ENCOUNTER 2021-09-19 08:00 | Outpatient (CLI) | payer MEDICARE | END 2021-09-19 23:59 | LOC: LAB.N 08:00 | PROVIDERS: ATTEND Internal Medicine | DX: I48.19 Other persistent atrial fibrillation (principal) | CPT/HCPCS: 36416; 85610 ==

== ENCOUNTER 2021-10-11 14:19 | Outpatient (CLI) | payer MEDICARE | END 2021-10-11 14:20 | disposition home or self-care (01) | LOC: LAB.N 14:19 | PROVIDERS: ATTEND Internal Medicine | DX: I48.19 Other persistent atrial fibrillation (principal) | CPT/HCPCS: 36416; 85610 ==

== ENCOUNTER 2021-10-16 11:34 | Outpatient (CLI) | payer MEDICARE ==
--- NOTE | 2021-10-17 07:50 | XRAY Report ---
PROCEDURE: Knee 3 View LT INDICATIONS: OSTEOARTHRITIS L KNEE TECHNIQUE: 3 views of the left knee(s) were acquired. COMPARISON: None. FINDINGS: Bones: No fractures or dislocations. No suspicious bony lesions. Tricompartment degenerative arthr itis with osteophytes and mild lateral compartment and patellofemoral joint space loss. Soft tissues: No joint effusion. No suspicious soft tissue calcifications. IMPRESSION: Degenerative arthritis of the left knee. Reviewed by: Contreras Swenson MD on 10/17/2021 7:48 AM PDT Approved by: Contreras Swenson MD on 10/17/2021 7:48 AM PDT Station ID: [id number]
== END 2021-10-16 11:35 | disposition home or self-care (01) ==
LOC: DI 11:34
PROVIDERS: ATTEND Internal Medicine
DX: M17.12 Unilateral primary osteoarthritis, left knee (principal)

== ENCOUNTER 2021-11-29 12:51 | Outpatient (CLI) | payer MEDICARE | END 2021-11-29 12:52 | disposition home or self-care (01) | LOC: LAB.N 12:51 | PROVIDERS: ATTEND Internal Medicine | DX: I48.19 Other persistent atrial fibrillation (principal) | CPT/HCPCS: 36416; 85610 ==

== ENCOUNTER 2021-12-04 12:57 | Outpatient (CLI) | payer MEDICARE | END 2021-12-04 12:58 | disposition home or self-care (01) | LOC: LAB.N 12:57 | PROVIDERS: ATTEND Internal Medicine | DX: I48.19 Other persistent atrial fibrillation (principal) | CPT/HCPCS: 36416; 85610 ==

== ENCOUNTER 2021-12-20 13:42 | Outpatient (CLI) | payer MEDICARE | END 2021-12-20 13:43 | disposition home or self-care (01) | LOC: LAB.N 13:42 | PROVIDERS: ATTEND Internal Medicine | DX: I48.19 Other persistent atrial fibrillation (principal) | CPT/HCPCS: 36416; 85610 ==

== ENCOUNTER 2022-01-24 13:03 | Outpatient (CLI) | payer MEDICARE | END 2022-01-24 13:04 | disposition home or self-care (01) | LOC: LAB.N 13:03 | PROVIDERS: ATTEND Internal Medicine | DX: I48.19 Other persistent atrial fibrillation (principal) | CPT/HCPCS: 36416; 85610 ==

== ENCOUNTER 2022-01-31 10:31 | Outpatient (CLI) | payer MEDICARE | END 2022-01-31 10:32 | disposition home or self-care (01) | LOC: LAB.N 10:31 | PROVIDERS: ATTEND Internal Medicine | DX: I48.19 Other persistent atrial fibrillation (principal) | CPT/HCPCS: 36416; 85610 ==

== ENCOUNTER 2022-02-19 13:00 | Outpatient (CLI) | payer MEDICARE | END 2022-02-19 13:01 | disposition home or self-care (01) | LOC: LAB.N 13:00 | PROVIDERS: ATTEND Internal Medicine | DX: I48.19 Other persistent atrial fibrillation (principal) | CPT/HCPCS: 36416; 85610 ==

== ENCOUNTER 2022-02-28 13:25 | Outpatient (CLI) | payer MEDICARE | END 2022-02-28 13:26 | disposition home or self-care (01) | LOC: LAB.N 13:25 | PROVIDERS: ATTEND Internal Medicine | DX: I48.19 Other persistent atrial fibrillation (principal) | CPT/HCPCS: 36416; 85610 ==

== ENCOUNTER 2022-04-04 13:07 | Outpatient (CLI) | payer MEDICARE | END 2022-04-04 13:08 | disposition home or self-care (01) | LOC: LAB.N 13:07 | PROVIDERS: ATTEND Internal Medicine | DX: I48.19 Other persistent atrial fibrillation (principal) | CPT/HCPCS: 36416; 85610 ==

== ENCOUNTER 2022-05-15 07:49 | Outpatient (CLI) | payer MEDICARE ==
--- NOTE | 2022-05-15 16:46 | Ultrasound Report ---
PROCEDURE: Duplex Lwr Ext Arterial Bilat INDICATIONS: AAA, LEG PAIN TECHNIQUE: Color and pulse Doppler interrogation was performed of both lower extremity arterial systems, with im age documentation. COMPARISON: None FINDINGS: Right lower extremity: Common femoral artery: 207 cm/sec, with triphasic flow. Deep femoral artery: 130 cm/sec, with biphasic flow. Proximal superficial femoral artery: 79 cm/sec, with triphasic flow. Mid superficial femoral artery: 55 cm/sec, with triphasic flow. Distal superficial femoral artery: 61 cm/sec, with triphasic flow. Popliteal artery: 30 cm/sec, with triphasic flow. Posterior tibial artery: 5 cm/sec, with triphasic flow. Anterior tibial artery/dorsalis pedis: 45 cm/sec, with triphasic flow. Carbajal-scale imaging description: Diffuse calcific plaque throughout the right lower extremity. Left lower extremity: Common femoral artery: 53 cm/sec, with triphasic flow. Deep femoral artery: 64 cm/sec, with biphasic flow. Proximal superficial femoral artery: 82 cm/sec, with I phasic flow. Mid superficial femoral artery: 55 cm/sec, with biphasic flow. Distal superficial femoral artery: 25 cm/sec, with phasic flow. Popliteal artery: 23 cm/sec, with biphasic flow. Posterior tibial artery: 21 cm/sec, with biphasic flow. Anterior tibial artery/dorsalis pedis: 27 cm/sec, with biphasic flow. Carbajal-scale imaging description: Diffuse calcific plaque throughout the left lower extremity. IMPRESSION: 1. Elevated velocity in the right BELLSTAFF consistent with a greater than 50% stenosis. 2. Possible inflow disease on the left. 3. Recommend MR angiogram or CT angiogram. Reviewed by: Valeriano Fair on 05/15/2022 4:45 PM PDT Approved by: Valeriano Fair on 05/15/2022 4:45 PM PDT Station ID: [id number]
--- NOTE | 2022-05-15 16:51 | Ultrasound Report ---
PROCEDURE: Retroperitoneal Limited INDICATIONS: AAA, LEG PAIN TECHNIQUE: Real time scanning was performed of the aorta and iliac arteries, with image documentatio n. COMPARISON: 07/24/2021,11/04/19, 09/19/2018 FINDINGS: Aorta: Proximal aortic diameter measures 2.1 x 2 cm. Mid-aorta measures 2.7 x 2.6 cm. Distal aorti c diameter is 2.8 x 3 cm. Iliac arteries: Right common iliac artery measures 1.3 cm. Left common iliac artery measures 1.4 cm . Extensive atherosclerotic plaques are noted throughout abdominal aorta and bilateral common iliac art eries. Triphasic waveforms are noted throughout visualized right common iliac artery and external kristen ac artery. Triphasic waveform is seen in left common iliac artery proximally. Biphasic waveforms are noted in distal left common iliac artery and external iliac artery as well as visualized left common femoral artery. IMPRESSION: 1. Mild fusiform infrarenal abdominal aortic aneurysm measures up to 2.8 x 3 cm in AP diameter on the current study compared to 3 x 3.3 cm on previous study. 2. Extensive atherosclerotic calcifications throughout abdominal aorta and visualized bilateral iliac arteries. 3. Biphasic waveforms noted in left distal common iliac artery, external iliac artery and proximal co mmon femoral artery concerning for hemodynamically significant stenosis involving proximal to mid lef t common iliac artery. 4. No hemodynamically significant stenosis is seen in right iliac arteries and common femoral artery. Reviewed by: Aubrey Anaya MD on 05/15/2022 4:49 PM PDT Approved by: Aubrey Anaya MD on 05/15/2022 4:49 PM PDT Station ID: [id number]
== END 2022-05-15 07:50 | disposition home or self-care (01) ==
LOC: DI 07:49
PROVIDERS: ATTEND Internal Medicine
DX: I71.43 Infrarenal abdominal aortic aneurysm, without rupture (principal); I70.0 Atherosclerosis of aorta; I70.8 Atherosclerosis of other arteries
CPT/HCPCS: 93925

== ENCOUNTER 2022-07-01 14:00 | Outpatient (CLI) | payer MEDICARE | END 2022-07-01 14:01 | disposition home or self-care (01) | LOC: LAB.N 14:00 | PROVIDERS: ATTEND Internal Medicine | DX: I48.19 Other persistent atrial fibrillation (principal) | CPT/HCPCS: 36416; 85610 ==

== ENCOUNTER 2022-07-11 13:07 | Outpatient (CLI) | payer MEDICARE | END 2022-07-11 13:08 | disposition home or self-care (01) | LOC: LAB.N 13:07 | PROVIDERS: ATTEND Internal Medicine | DX: I48.19 Other persistent atrial fibrillation (principal) | CPT/HCPCS: 36416; 85610 ==

== ENCOUNTER 2022-08-19 13:29 | Outpatient (CLI) | payer MEDICARE | END 2022-08-19 13:30 | disposition home or self-care (01) | LOC: LAB.N 13:29 | PROVIDERS: ATTEND Internal Medicine | DX: I48.19 Other persistent atrial fibrillation (principal) | CPT/HCPCS: 36416; 85610 ==

== ENCOUNTER 2022-09-19 13:16 | Outpatient (CLI) | payer MEDICARE | END 2022-09-19 13:17 | disposition home or self-care (01) | LOC: LAB.N 13:16 | PROVIDERS: ATTEND Internal Medicine | DX: I48.19 Other persistent atrial fibrillation (principal) | CPT/HCPCS: 36416; 85610 ==

== ENCOUNTER 2022-10-03 14:43 | Outpatient (CLI) | payer MEDICARE | END 2022-10-03 14:44 | disposition home or self-care (01) | LOC: LAB.N 14:43 | PROVIDERS: ATTEND Internal Medicine | DX: I48.19 Other persistent atrial fibrillation (principal) | CPT/HCPCS: 36416; 85610 ==

== ENCOUNTER 2022-10-11 14:31 | Outpatient (CLI) | payer MEDICARE | END 2022-10-11 14:32 | disposition home or self-care (01) | LOC: LAB.N 14:31 | PROVIDERS: ATTEND Internal Medicine | DX: I48.19 Other persistent atrial fibrillation (principal) | CPT/HCPCS: 36416; 85610 ==

== ENCOUNTER 2022-10-31 15:13 | Outpatient (CLI) | payer MEDICARE | END 2022-10-31 15:14 | disposition home or self-care (01) | LOC: LAB.N 15:13 | PROVIDERS: ATTEND Internal Medicine | DX: I48.19 Other persistent atrial fibrillation (principal) | CPT/HCPCS: 36416; 85610 ==

== ENCOUNTER 2022-11-04 13:32 | Outpatient (CLI) | payer MEDICARE | END 2022-11-04 13:33 | disposition home or self-care (01) | LOC: LAB.N 13:32 | PROVIDERS: ATTEND Internal Medicine | DX: I48.19 Other persistent atrial fibrillation (principal) | CPT/HCPCS: 36416; 85610 ==

== ENCOUNTER 2022-12-05 14:19 | Outpatient (CLI) | payer MEDICARE | END 2022-12-05 14:20 | disposition home or self-care (01) | LOC: LAB.N 14:19 | PROVIDERS: ATTEND Internal Medicine | DX: I48.19 Other persistent atrial fibrillation (principal) | CPT/HCPCS: 36416; 85610 ==

== ENCOUNTER 2022-12-25 14:19 | Outpatient (CLI) | payer MEDICARE | END 2022-12-25 14:20 | disposition home or self-care (01) | LOC: LAB.N 14:19 | PROVIDERS: ATTEND Internal Medicine | DX: I48.19 Other persistent atrial fibrillation (principal) | CPT/HCPCS: 36416; 85610 ==

== ENCOUNTER 2023-01-01 15:03 | Outpatient (CLI) | payer MEDICARE ==
[2023-01-01 17:55] LABS: CREATININE 1.2 mg/dL (0.6-1.2); POTASSIUM 4.6 mmol/L (3.5-5.0)
[2023-01-01 18:14] LABS: INR 2.4 (0.8-1.2); PT - PROTHROMBIN TIME 25.1 secs (9.9-12.6)
== END 2023-01-01 23:59 | disposition home or self-care (01) ==
LOC: LAB.N 15:03
PROVIDERS: ATTEND Internal Medicine
DX: I10 Essential (primary) hypertension (principal); R73.9 Hyperglycemia, unspecified; I48.19 Other persistent atrial fibrillation
CPT/HCPCS: 36415; 80048; 85610

== ENCOUNTER 2023-01-08 15:03 | Outpatient (CLI) | payer MEDICARE ==
[2023-01-08 17:56] LABS: CALCIUM 9.2 mg/dL (8.5-10.3); CREATININE 1.3 mg/dL (0.6-1.2); POTASSIUM 4.7 mmol/L (3.5-5.0)
== END 2023-01-08 15:04 | disposition home or self-care (01) ==
LOC: LAB.N 15:03
PROVIDERS: ATTEND Internal Medicine
DX: I48.19 Other persistent atrial fibrillation (principal); I13.10 Hypertensive heart and chronic kidney disease without heart failure, with stage 1 through stage 4 chronic kidney disease, or unspecified chronic kidney disease; Z79.899 Other long term (current) drug therapy
CPT/HCPCS: 36415; 80048; 83880

== ENCOUNTER 2023-01-23 14:32 | Outpatient (CLI) | payer MEDICARE | END 2023-01-23 14:33 | disposition home or self-care (01) | LOC: LAB.N 14:32 | PROVIDERS: ATTEND Internal Medicine | DX: I48.19 Other persistent atrial fibrillation (principal) | CPT/HCPCS: 36416; 85610 ==

== ENCOUNTER 2023-04-23 15:47 | Outpatient (CLI) | payer MEDICARE | END 2023-04-23 15:48 | disposition home or self-care (01) | LOC: LAB.N 15:47 | PROVIDERS: ATTEND Internal Medicine | DX: I48.19 Other persistent atrial fibrillation (principal) | CPT/HCPCS: 36416; 85610 ==

== ENCOUNTER 2023-07-03 14:37 | Outpatient (CLI) | payer MEDICARE | END 2023-07-03 14:38 | disposition home or self-care (01) | LOC: LAB.N 14:37 | PROVIDERS: ATTEND Internal Medicine | DX: I48.19 Other persistent atrial fibrillation (principal) | CPT/HCPCS: 36415; 85610 ==

== ENCOUNTER 2023-09-04 11:22 | Outpatient (CLI) | payer MEDICARE ==
[2023-09-04 17:36] LABS: BASOPHILS % (AUTO) 0.6 %; EOSINOPHILS # (AUTO) 0.1 10^3/uL (0.0-0.7); EOSINOPHILS % (AUTO) 1.4 %; HCT - HEMATOCRIT 40.2 % (42.0-52.0); HGB - HEMOGLOBIN 12.7 g/dL (14.0-18.0); LYMPHOCYTES # (AUTO) 0.9 10^3/uL (1.5-3.5); LYMPHOCYTES % (AUTO) 17.9 %; MEAN CORPUSCULAR HEMOGLOBIN 32.1 pg (27.0-31.0); MEAN CORPUSCULAR HGB CONC 31.6 g/dL (32.0-36.0); MEAN CORPUSCULAR VOLUME 101.5 fL (80.0-94.0); MEAN PLATELET VOLUME 10.4 fL (7.4-11.4); MONOCYTES # (AUTO) 0.5 10^3/uL (0.0-1.0); MONOCYTES % (AUTO) 10.5 %; NEUTROPHILS # (AUTO) 3.4 10^3/uL (1.5-6.6); NEUTROPHILS % (AUTO) 69.2 %; PLT - PLATELET COUNT 160 10^3/uL (130-450); RED BLOOD COUNT 3.96 10^6/uL (4.70-6.10); RED CELL DISTRIBUTION WIDTH 13.2 % (12.0-15.0); WHITE BLOOD COUNT 4.9 x10^3/uL (4.8-10.8)
[2023-09-04 17:44] LABS: PT - PROTHROMBIN TIME 21.1 secs (9.9-12.6)
[2023-09-04 17:57] LABS: CALCIUM 9.5 mg/dL (8.5-10.3); CREATININE 1.3 mg/dL (0.6-1.3); POTASSIUM 4.5 mmol/L (3.5-4.5); URIC ACID 6.1 mg/dL (4.4-7.6)
== END 2023-09-04 11:23 | disposition home or self-care (01) ==
LOC: LAB.N 11:22
PROVIDERS: ATTEND Internal Medicine
DX: I10 Essential (primary) hypertension (principal); I48.19 Other persistent atrial fibrillation; M17.12 Unilateral primary osteoarthritis, left knee; D64.9 Anemia, unspecified; M25.50 Pain in unspecified joint; M89.9 Disorder of bone, unspecified; E66.9 Obesity, unspecified
CPT/HCPCS: 36415; 80048; 84550; 85025; 85610; 85651

== ENCOUNTER 2023-10-11 19:52 | Outpatient (CLI) | payer MEDICARE | END 2023-10-11 19:53 | disposition critical access hospital (66) | LOC: EMS 19:52 | DX: R42 Dizziness and giddiness (principal); R06.02 Shortness of breath; R11.0 Nausea | CPT/HCPCS: A0425; A0427 ==

== ENCOUNTER 2023-10-11 20:10 | Emergency (ER) | payer MEDICARE ==
[2023-10-11 20:37] LABS: BASOPHILS % (AUTO) 0.2 %; EOSINOPHILS % (AUTO) 0.1 %; HCT - HEMATOCRIT 36.8 % (42.0-52.0); HGB - HEMOGLOBIN 11.7 g/dL (14.0-18.0); LYMPHOCYTES # (AUTO) 0.5 10^3/uL (1.5-3.5); LYMPHOCYTES % (AUTO) 4.5 %; MEAN CORPUSCULAR HEMOGLOBIN 31.8 pg (27.0-31.0); MEAN CORPUSCULAR HGB CONC 31.8 g/dL (32.0-36.0); MEAN PLATELET VOLUME 9.7 fL (7.4-11.4); MONOCYTES # (AUTO) 0.8 10^3/uL (0.0-1.0); MONOCYTES % (AUTO) 7.6 %; NEUTROPHILS # (AUTO) 9.1 10^3/uL (1.5-6.6); NEUTROPHILS % (AUTO) 87.1 %; PLT - PLATELET COUNT 138 10^3/uL (130-450); RED BLOOD COUNT 3.68 10^6/uL (4.70-6.10); WHITE BLOOD COUNT 10.4 x10^3/uL (4.8-10.8)
[2023-10-11 20:51] LABS: ALBUMIN 4.1 g/dL (3.2-5.5); ALBUMIN/GLOBULIN RATIO 1.6 (1.0-2.2); BILIRUBIN,TOTAL 0.6 mg/dL (0.2-1.0); CREATININE 1.2 mg/dL (0.6-1.3); POTASSIUM 4.1 mmol/L (3.5-4.5); TOTAL PROTEIN 6.7 g/dL (6.4-8.9)
[2023-10-11 20:56] LABS: TROPONIN I HIGH SENSITIVITY 6.2 ng/L (2.3-19.7)
[2023-10-11 21:03] LABS: BILIRUBIN,URINE NEGATIVE (NEGATIVE); GLUCOSE, URINE (UA) NEGATIVE (NEGATIVE); KETONES,URINE (UA) NEGATIVE (NEGATIVE); LEUKOCYTE ESTERASE, URINE NEGATIVE (NEGATIVE); NITRITE,URINE NEGATIVE (NEGATIVE); OCCULT BLOOD,URINE TRACE-INTA (NEGATIVE); PROTEIN,URINE TRACE mg/dL (NEGATIVE); UROBILINOGEN,URINE 0.2 (NORMAL) E.U./dL (NORMAL)
--- NOTE | 2023-10-11 21:04 | ED Physician Documentation ---
History of Present Illness - Stated complaint Stated Complaint: DIZZY/NAUSEA - Chief complaint Chief Complaint: Neuro - History obtained from History obtained from: Patient, Family, EMS - History of Present Illness Pain level max: 0 Pain level now: 0 - Additonal information Additional information: Patient is a 78-year-old male brought in to the emergency department for altered mental status. Reportedly he was at a restaurant tonight with his son. He had 1 episode of emesis. After that he had difficulty standing and walking. He had difficulty remembering things and appeared "confused". Patient denies any drug or alcohol use. He is on warfarin but says he has not fallen or hit his head. Denies a headache. No abdominal pain. Emesis x 1 but no other episodes. No diarrhea or constipation. No urinary symptoms. No numbness or tingling. No facial droop. No difficulty with speech or swallowing. No fevers. No chills. No cough. No congestion. No rashes. Patient is accompanied by his girlfriend. He states that he feels back to normal but the girlfriend still states that he appears confused to her. She states he is not at his baseline currently. Review of Systems Constitutional: denies: Fever, Chills Ears: denies: Ear pain Respiratory: denies: Cough GI: denies: Nausea, Vomiting, Diarrhea Skin: denies: Rash Musculoskeletal: denies: Neck pain, Back pain Neurologic: denies: Focal weakness, Numbness, Confused, LOC PD PAST MEDICAL HISTORY - Past Medical History Past Medical History: Yes Cardiovascular: Atrial fibrillation Respiratory: COPD Endocrine/Autoimmune: None GI: None : Benign prostate hypertrophy Musculoskeletal: None Derm: None - Past Surgical History Cardiovascular: Pacemaker - Present Medications Home Medications: Ambulatory Orders Medication Instructions Recorded Confirmed Sertraline [Zoloft] 100 mg ORAL DAILY 12/02/12 09/01/23 Simvastatin 5 mg ORAL UD 12/02/12 09/01/23 Vitamin B-12 500 mcg ORAL DAILY 12/02/12 09/01/23 Vitamin D 400 units ORAL BID 12/02/12 09/01/23 lisinopriL [Lisinopril] 10 mg PO DAILY 12/02/12 09/01/23 Sotalol [Betapace] 80 mg ORAL BID 05/16/14 09/01/23 Albuterol Sulfate [Proair Hfa] 2 puffs INH DAILY PRN 04/15/16 09/01/23 Ipratropium Valentines [Atrovent] 1 spray RANJAN DAILY 04/15/16 09/01/23 Montelukast [Singulair] 10 mg PO QPM 06/03/16 09/01/23 Apixaban [Eliquis] 5 mg PO DAILY 11/23/18 09/01/23 Carbidopa/Levodopa 25/100 [Sinemet 1 tab PO BID 11/23/18 09/01/23 25 mg/100 mg] Chlorthalidone 25 tab PO DAILY 11/23/18 09/01/23 Ipratropium Valentines [Atrovent Hfa] 1 puffs PO BID 11/23/18 09/01/23 Hydrocodone/Acetaminophen [Mission 1 each PO Q6HR PRN #15 tablet 03/10/19 09/01/23 5-325 Tablet] cephALEXin [Keflex] 500 mg PO Q6H #28 capsule 03/10/19 09/01/23 Acetaminophen with Codeine 1 each PO UD 08/19/22 09/01/23 [Acetaminophen-Cod #3 Tablet] Blood-Glucose Meter [Onetouch 1 each MC 08/19/22 09/01/23 Verio Reflect Meter] Diclofenac Sodium 1% Gel [Voltaren 2 gm TOP 08/19/22 09/01/23 Gel] Fluticasone Propionate [Flovent 50 mcg IH 08/19/22 09/01/23 Diskus] Tramadol HCl 50 mg PO UD 08/19/22 09/01/23 Warfarin Sodium [Jantoven] 5 mg PO DAILY 08/19/22 09/01/23 hydroCHLOROthiazide [Hydrodiuril] 25 mg PO UD 08/19/22 09/01/23 - Allergies Allergies/Adverse Reactions: Allergies Allergy/AdvReac Type Severity Reaction Status Date / Time azithromycin Allergy Mild Hives Verified 10/11/23 20:22 - Social History Does the pt smoke?: No Smoking Status: Never smoker PD ED PE NORMAL - Vitals Vital signs reviewed: Yes - General General: Alert and oriented X 3, No acute distress - HEENT HEENT: Atraumatic, PERRL, Ears normal, Moist mucous membranes, Pharynx benign - Neck Neck: Supple, no meningeal sign - Cardiac Cardiac: RRR, No murmur, Strong equal pulses - Respiratory Respiratory: No respiratory distress, Clear bilaterally - Abdomen Abdomen: Soft, Non tender, Non distended - Back Back: No CVA TTP, No spinal TTP - Derm Derm: Warm and dry - Extremities Extremities: No edema, No calf tenderness / cord - Neuro Neuro: Alert and oriented X 3, chief underwriter 2-12 intact, No motor deficit, No sensory deficit, Normal speech Eye Opening: Spontaneous Motor: Obeys Commands Verbal: Oriented GCS Score: 15 - Psych Psych: Normal mood, Normal affect Results - Vitals Vitals: Vital Signs - 24 hr 10/11/23 10/11/23 10/11/23 20:19 20:22 22:22 Temperature 37.0 C Heart Rate 66 66 71 Respiratory 16 16 18 Rate Blood Pressure 116/53 L 103/53 L 106/54 L O2 Saturation 94 100 98 Oxygen O2 Source Room air - Labs Labs: Laboratory Tests 10/11/23 10/11/23 10/11/23 20:15 20:15 20:15 WBC 10.4 RBC 3.68 L Hgb 11.7 L Hct 36.8 L MCV 100.0 H MCH 31.8 H MCHC 31.8 L RDW 13.0 Plt Count 138 MPV 9.7 Neut # (Auto) 9.1 H Lymph # (Auto) 0.5 L [place] # (Auto) 0.8 Eos # (Auto) 0.0 Baso # (Auto) 0.0 Absolute Nucleated RBC 0.00 Nucleated RBC % 0.0 PT 29.8 H INR 2.9 H Sodium 136 Potassium 4.1 Chloride 106 Carbon Dioxide 22 Anion Gap 8.0 BUN 22 H Creatinine 1.2 Estimated GFR (MDRD) 58 L Glucose 117 H Calcium 9.0 Total Bilirubin 0.6 AST 12 ALT 9 L Alkaline Phosphatase 31 L Troponin I High Sens 6.2 Total Protein 6.7 Albumin 4.1 Globulin 2.6 Albumin/Globulin Ratio 1.6 Lipase 77 Urine Color Urine Clarity Urine pH Ur Specific Mcfar[place] Urine Protein Urine Glucose (UA) Urine Ketones Urine Occult Blood Urine Nitrite Urine Bilirubin Urine Urobilinogen Ur Leukocyte Esterase Ur Microscopic Review Urine Culture Comments Urine Opiates Screen Ur Buprenorphine Scrn Ur Oxycodone Screen Urine Methadone Screen Ur Barbiturates Screen Ur Tricyclics Screen Ur Phencyclidine Scrn Ur Amphetamine Screen U Methamphetamines Scrn U Benzodiazepines Scrn Urine Cocaine Screen U Cannabinoids Screen Ur Drug Screen Comment Ethyl Alcohol 10/11/23 10/11/23 10/11/23 20:15 21:00 21:00 WBC RBC Hgb Hct MCV MCH MCHC RDW Plt Count MPV Neut # (Auto) Lymph # (Auto) [place] # (Auto) Eos # (Auto) Baso # (Auto) Absolute Nucleated RBC Nucleated RBC % PT INR Sodium Potassium Chloride Carbon Dioxide Anion Gap BUN Creatinine Estimated GFR (MDRD) Glucose Calcium Total Bilirubin AST ALT Alkaline Phosphatase Troponin I High Sens Total Protein Albumin Globulin Albumin/Globulin Ratio Lipase Urine Color YELLOW Urine Clarity CLEAR Urine pH 6.0 Ur Specific [place]far[place] 1.020 Urine Protein TRACE Urine Glucose (UA) NEGATIVE Urine Ketones NEGATIVE Urine Occult Blood TRACE-INTA Urine Nitrite NEGATIVE Urine Bilirubin NEGATIVE Urine Urobilinogen 0.2 (NORMAL) Ur Leukocyte Esterase NEGATIVE Ur Microscopic Review NOT INDICATED Urine Culture Comments NOT INDICATED Urine Opiates Screen NEGATIVE Ur Buprenorphine Scrn NEGATIVE Ur Oxycodone Screen NEGATIVE Urine Methadone Screen NEGATIVE Ur Barbiturates Screen NEGATIVE Ur Tricyclics Screen NEGATIVE Ur Phencyclidine Scrn NEGATIVE Ur Amphetamine Screen NEGATIVE U Methamphetamines Scrn NEGATIVE U Benzodiazepines Scrn NEGATIVE Urine Cocaine Screen NEGATIVE U Cannabinoids Screen NEGATIVE Ur Drug Screen Comment CUTOFF CONC BELOW: Ethyl Alcohol < 10.0 - Rads (name of study) Head CT Relevant Findings:: Final report received, See rad report CT angiogram head and neck Relevant Findings:: Final report received, See rad report PD Medical Decision Making - ED course Complexity details: reviewed results, re-evaluated patient, considered differential, d/w patient, d/w family ED course: Patient is a 78-year-old male who presents to the emergency department with altered mental status earlier tonight. Question of some dizziness earlier along with 1 episode of vomiting. Possible vertigo? He does not have any acute neurological deficits in the emergency department. No significant laboratory abnormalities. No UTI. Head CT and CT angiogram head and neck do not show any acute abnormalities. His mental status has resolved back to his normal baseline. NIH stroke scale of 0. We will have him follow-up with his doctor for further care. Patient and family all confirm that he is back to his normal baseline. Patient counseled regarding signs and symptoms for which I believe and urgent re-evaluation would be necessary. Patient with good understanding of and agreement to plan and is comfortable going home at this time This document was made in part using voice recognition software. While efforts are made to proofread this document, sound alike and grammatical errors may occur. Departure - Departure Disposition: 01 Home, Self Care Clinical Impression: Altered mental status Qualifiers: Altered mental status type: transient alteration of awareness Qualified C ode(s): R40.4 - Transient alteration of awareness Vomiting Qualifiers: Vomiting type: unspecified Nausea presence: unspecified Qualified Code(s): R11.10 - Vomiting, unspecified Condition: Good Instructions: ED Altered Loc, ED Nausea Vomiting Follow-Up: Carrillo Trinidad MD [Primary Care Provider] - Within 1 week Comments: Your head CT and CT angiogram do not show any acute abnormalities today. Make sure you are drinking plenty of fluids at home. There is no evidence of urinary tract infection. You do not appear to have had a stroke. Please follow-up with your doctor for further care. Please return if you worsen Forms: PCP List Discharge Date/Time: 10/11/23 22:51 NIHSS - Time Time: 21:00 - Level of Consciousness Level of consciousness: (0) Alert, Keenly responsive LOC Questions: (0) Answers both Q's correct LOC Commands: (0) Performs both correctly - Gaze Best Gaze: (0) Normal - Visual Visual: (0) No loss - Facial Palsy Facial Palsy: (0) Normal, symmetrical movement - Motor Arms (both separate) Motor Arm (right): (0) No drift Motor Arm (left): (0) No drift - Motor Legs (both separate) Motor Leg (right): (0) No drift Motor Leg (left): (0) No drift - Limb Ataxia Limb Ataxia: (0) Absent - Sensory Sensory: (0) Normal - Best Language Best Language: (0) No aphasia - Dysarthria Dysarthria: (0) Normal - Extinction and Inattention (formally neg Extinction and inattention: (0) No abnormality - Total Score/Results Total Score/Result: 0
[2023-10-11 21:05] LABS: CLARITY,URINE CLEAR (CLEAR)
[2023-10-11] MEDS ORDERED: iohexoL-300 100 ML VIAL ONE (21:06)
[2023-10-11] MEDS: SODIUM CHLORIDE 0.9% 1,000 ML IV STA (21:08)
[2023-10-11 21:19] LABS: AMPHETAMINE SCREEN,URINE NEGATIVE (NEGATIVE); BARBITURATE SCREEN,UR NEGATIVE (NEGATIVE); BENZODIAZEPINES SCREEN, URINE NEGATIVE (NEGATIVE); BUPRENORPHINE SCREEN, URINE NEGATIVE (NEGATIVE); COCAINE SCREEN URINE NEGATIVE (NEGATIVE); METHADONE SCREEN, URINE NEGATIVE (NEGATIVE); METHAMPHETAMINES SCREEN, URINE NEGATIVE (NEGATIVE); OPIATE SCREEN, URINE NEGATIVE (NEGATIVE); OXYCODONE SCREEN, URINE NEGATIVE (NEGATIVE); THC CANNABINOID SCREEN, URINE NEGATIVE (NEGATIVE); TRICYCLIC ANTIDEPRESSANT,URINE NEGATIVE (NEGATIVE)
[2023-10-11 21:27] LABS: INR 2.9 (0.8-1.2); PT - PROTHROMBIN TIME 29.8 secs (9.9-12.6)
[2023-10-11] MEDS: iohexoL-300 100 ML VIAL IVP ONE (21:59)
--- NOTE | 2023-10-11 22:14 | CT Report ---
PROCEDURE: Head WO INDICATIONS: altered mental status, vomiting TECHNIQUE: Noncontrast 4.5 mm thick angled axial sections acquired from the foramen magnum to the vertex. For r adiation dose reduction, the following was used: automated exposure control, adjustment of mA and/or kV according to patient size. COMPARISON: Prior head CT 03/10/2019. FINDINGS: Image quality: Excellent. CSF spaces: Basal cisterns are patent. No extra-axial fluid collections. Ventricles are normal in size and shape. Brain: No midline shift. No intracranial masses or hemorrhage. Carbajal-white matter interface is norm al. Skull and face: Calvarium and visualized facial bones are intact, without suspicious lesions. Sinuses: Visualized sinuses and mastoids are clear. IMPRESSION: No acute intracranial pathology. Reviewed by: Evin Yu MD on 10/11/2023 10:13 PM PST Approved by: Evin Yu MD on 10/11/2023 10:13 PM [facility] Station ID: [id number]
--- NOTE | 2023-10-11 22:23 | CT Report ---
PROCEDURE: Angio Head/Neck INDICATIONS: altered mental status, vomiting TECHNIQUE: Arterial phase contrast enhanced imaging through the brachiocephalic vasculature from thor acic inlet cephalad into the hand through the alturas of [place]. Maximum intensity projection ray form ation imaging, multiplanar, was then performed optimize for arterial enhancement. COMPARISON: Head CT scanning same day, and 03/10/2019 reviewed. FINDINGS: No embolic disease is found. No high-grade stenosis is seen throughout the arterial vasculature from the aortic arch cephalad. Moderate atherosclerotic calcific plaquing is seen at the carotid bifurcati ons bilaterally, with less than 50% stenosis at each proximal internal carotid artery. IMPRESSION: No acute disease, no hemodynamically significant arterial stenosis is found. Reviewed by: Evin Yu MD on 10/11/2023 10:22 PM [facility] Approved by: Evin Yu MD on 10/11/2023 10:22 PM [facility] Station ID: [id number]
[2023-10-11 22:41] VITALS: BP 106/54; O2SAT 98
== END 2023-10-11 22:51 | disposition home or self-care (01) ==
LOC: EDUNIT# → ED 20:10
DX: R41.82 Altered mental status, unspecified (principal); Z79.01 Long term (current) use of anticoagulants; R11.10 Vomiting, unspecified
CPT/HCPCS: 36415; 70450; 70496; 70498; 80053; 80306; 81003; 83690; 84484; 85025; 85610; 93005; 96360; 99284; G0480; Q9967; 81001; 82077; 87086

== ENCOUNTER 2023-10-23 14:25 | Outpatient (CLI) | payer MEDICARE | END 2023-10-23 14:26 | disposition home or self-care (01) | LOC: LAB.N 14:25 | PROVIDERS: ATTEND Internal Medicine | DX: I48.19 Other persistent atrial fibrillation (principal) | CPT/HCPCS: 36416; 85610 ==

== ENCOUNTER 2023-11-24 09:31 | Outpatient (CLI) | payer MEDICARE ==
--- NOTE | 2023-11-24 13:08 | Ultrasound Report ---
PROCEDURE: Renal Ltd (Retroperitoneal Ltd INDICATIONS: AAA TECHNIQUE: Real time scanning was performed of the aorta and iliac arteries, with image documentatio n. COMPARISON: Ultrasound 07/24/2021. FINDINGS: Aorta: Proximal aortic diameter measures 2.6 x 2.8 cm. Mid-aorta measures 2.2 x 2.2 cm. Distal aor tic diameter is 3.0 x 3.3 cm. Iliac arteries: Right common iliac artery measures 1.5 x 1.6 cm. Left common iliac artery measures 1.8 x 1.8 cm. IMPRESSION: Infrarenal abdominal aortic aneurysm measures up to 3.3 cm, not significantly changed when compared t o the exam from 07/24/2021. Recommend three-year follow-up ultrasound based on guidelines provided be low. Recommended intervals for follow-up imaging of ectatic aortas and abdominal aortic aneurysms, per ACR consensus guidelines: 2.5-2.9 cm: 5 years 3.0-3.4 cm: 3 years 3.5-3.9 cm: 2 years 4.0-4.4 cm: 1 year 4.5-4.9 cm: 6 months + endovascular referral 5.0-5.5 cm: 3-6 months + endovascular referral Reviewed by: Maximino Rollins MD on 11/24/2023 1:07 PM PDT Approved by: Maximino Rollins MD on 11/24/2023 1:07 PM PDT Station ID: [id number]
== END 2023-11-24 09:32 | disposition home or self-care (01) ==
LOC: DI 09:31
PROVIDERS: ATTEND Internal Medicine
DX: I71.40 Abdominal aortic aneurysm, without rupture, unspecified (principal)

== ENCOUNTER 2023-11-27 15:13 | Outpatient (CLI) | payer MEDICARE | END 2023-11-27 15:14 | disposition home or self-care (01) | LOC: LAB.N 15:13 | PROVIDERS: ATTEND Internal Medicine | DX: I48.19 Other persistent atrial fibrillation (principal) | CPT/HCPCS: 36416; 85610 ==

== ENCOUNTER 2024-01-22 14:23 | Outpatient (CLI) | payer MEDICARE | END 2024-01-22 14:24 | disposition home or self-care (01) | LOC: LAB.N 14:23 | PROVIDERS: ATTEND Internal Medicine | DX: I48.19 Other persistent atrial fibrillation (principal) | CPT/HCPCS: 36416; 85610 ==

== ENCOUNTER 2024-03-04 14:25 | Outpatient (CLI) | payer MEDICARE | END 2024-03-04 14:26 | disposition home or self-care (01) | LOC: LAB.N 14:25 | PROVIDERS: ATTEND Internal Medicine | DX: I48.19 Other persistent atrial fibrillation (principal) | CPT/HCPCS: 36416; 85610 ==

== ENCOUNTER 2024-03-18 12:26 | Outpatient (CLI) | payer MEDICARE | END 2024-03-18 12:27 | disposition home or self-care (01) | LOC: LAB.N 12:26 | PROVIDERS: ATTEND Internal Medicine | DX: I48.19 Other persistent atrial fibrillation (principal) | CPT/HCPCS: 36415; 36416; 85610 ==

== ENCOUNTER 2024-04-15 14:42 | Outpatient (CLI) | payer MEDICARE | END 2024-04-15 14:43 | disposition home or self-care (01) | LOC: LAB.N 14:42 | PROVIDERS: ATTEND Internal Medicine | DX: I48.19 Other persistent atrial fibrillation (principal) | CPT/HCPCS: 36416; 85610 ==